=== PATIENT | female | born 1960 | race Two or more races ===

== ENCOUNTER 2020-02-14 16:10 | Outpatient (CLI) | payer OTHER | END 2020-02-14 16:23 | disposition home or self-care (01) | LOC: RAD 16:10 | PROVIDERS: ATTEND Surgery | DX: M20.11 Hallux valgus (acquired), right foot (principal) ==

== ENCOUNTER 2020-07-02 11:04 | Outpatient (CLI) | payer OTHER | END 2020-07-02 11:12 | disposition home or self-care (01) | LOC: RAD 11:04 | DX: M25.542 Pain in joints of left hand (principal) ==

== ENCOUNTER 2020-08-04 13:03 | Outpatient (CLI) | payer OTHER | END 2020-08-04 13:09 | disposition home or self-care (01) | LOC: RAD 13:03 | DX: J45.998 Other asthma (principal) ==

== ENCOUNTER 2021-09-14 09:39 | Outpatient (CLI) | payer OTHER | END 2021-09-14 09:58 | disposition home or self-care (01) | LOC: TOM 09:39 | PROVIDERS: ATTEND General Practice | DX: J45.20 Mild intermittent asthma, uncomplicated (principal); J43.0 Unilateral pulmonary emphysema [MacLeod's syndrome]; J98.4 Other disorders of lung; F17.211 Nicotine dependence, cigarettes, in remission ==

== ENCOUNTER 2021-09-27 13:54 | Emergency (ER) | payer OTHER ==
[~2021-09-27] VITALS: Ht 157.5 cm; Wt 50.3 kg
[2021-09-27] MEDS ORDERED: SIMVASTATIN5 MG (14:06)
[2021-09-27] MEDS ORDERED: FOSAMAX70 MG PO (14:07)
[2021-09-27] MEDS ORDERED: HORIZANT300 MG PO (14:07)
[2021-09-27] MEDS ORDERED: NAPR500T14 PO (14:10)
[2021-09-27] MEDS ORDERED: ZIPSOR25 MG PO (14:11)
== END 2021-09-27 17:13 | disposition home or self-care (01) ==
LOC: ER 13:54
DX: S90.02XA Contusion of left ankle, initial encounter (principal); S90.32XA Contusion of left foot, initial encounter; S40.011A Contusion of right shoulder, initial encounter; W18.30XA Fall on same level, unspecified, initial encounter; Y93.9 Activity, unspecified; Y92.9 Unspecified place or not applicable; Y99.9 Unspecified external cause status

== ENCOUNTER 2022-02-10 07:51 | Outpatient (CLI) | payer OTHER ==
[~2022-02-10 07:51] MED LIST: FOSAMAX70 MG PO; HORIZANT300 MG PO; NAPR500T14 PO; SIMVASTATIN5 MG; ZIPSOR25 MG PO
== END 2022-02-10 08:05 | disposition home or self-care (01) ==
LOC: TOM 07:51
DX: R91.1 Solitary pulmonary nodule (principal); R91.8 Other nonspecific abnormal finding of lung field; J43.9 Emphysema, unspecified; F17.211 Nicotine dependence, cigarettes, in remission

== ENCOUNTER 2023-11-29 08:01 | Outpatient (CLI) | payer OTHER ==
[~2023-11-29 08:01] MED LIST changes: +ACETAMINOPHEN500 M2 PO; +FLEXERIL10 MG PO; +FOLIC ACID1 MG PO; +GABAPENTIN100 MG PO; +MOTRIN600 MG PO; +PREDNISONE2.5 MG PO; +PRILOSEC10 MG PO; +ZOCOR20 MG PO
== END 2023-11-29 08:12 | disposition home or self-care (01) ==
LOC: RAD 08:01
DX: J43.9 Emphysema, unspecified (principal); R91.8 Other nonspecific abnormal finding of lung field; F17.211 Nicotine dependence, cigarettes, in remission; M54.2 Cervicalgia; M46.82 Other specified inflammatory spondylopathies, cervical region
CPT/HCPCS: 72141

== ENCOUNTER 2024-01-17 13:30 | Outpatient (CLI) | payer OTHER | END 2024-01-17 13:31 | disposition home or self-care (01) | LOC: RAD 13:30 | PROVIDERS: ATTEND General Practice | DX: M25.512 Pain in left shoulder (principal) ==

== ENCOUNTER 2024-01-22 00:51 | Emergency (ER) | payer OTHER ==
[~2024-01-22] VITALS: Ht 157.5 cm; Wt 49.4 kg
[2024-01-22] MEDS ORDERED: KETOROLAC TROMETHAMINE 60 MG VIAL IM STA (02:18)
[2024-01-22] MEDS ORDERED: DEXAMETHASONE SODIUM PHOSPHATE 4 MG/ML VIAL IM STA (02:19)
[2024-01-22] MEDS ORDERED: CLONIDINE HCL 0.1 MG TABLET PO STA (02:19)
== END 2024-01-22 02:29 | disposition home or self-care (01) ==
LOC: ER 00:51
DX: M13.88 Other specified arthritis, other site (principal)